=== PATIENT | male | born 1975 | race African-American/Black ===

== ENCOUNTER 2025-05-22 21:39 | Inpatient (IN) | payer SELFPAY ==
[~2025-05-22] VITALS: Ht 185.4 cm; Wt 63.0 kg
[2025-05-22 21:43] VITALS: O2SAT 96
[2025-05-22 23:46] LABS: BASOPHILS % 0.3 % (0.0-2.0); EOSINOPHILS % 2.2 % (0.0-5.0); HEMATOCRIT. 35.1 % (42.0-52.0); HEMOGLOBIN. 11.7 g/dL (14.0-18.0); LYMPHOCYTES % 18.8 % (20.0-50.0); MEAN PLATELET VOLUME 8.6 fl (7.4-10.4); MONOCYTES % 10.2 % (2.0-8.0); NEUTROPHILS % 68.5 % (40.0-76.0); PLATELET 159 x1000/uL (130-400); RED BLOOD CELL COUNT 3.55 mill/uL (4.7-6.1); RED CELL DISTRIBUTION WIDTH 13.6 % (11.6-14.6)
[2025-05-22 23:54] LABS: CREATININE 1.3 mg/dL (0.6-1.3)
[2025-05-22 23:55] LABS: ETHANOL BLOOD 299 mg/dL (<10); UREA NITROGEN BLOOD 14 mg/dL (9-23)
[2025-05-22 23:56] LABS: ASPARTATE AMINOTRANSFERASE 35 IU/L (<34)
[2025-05-22 23:57] LABS: BILIRUBIN DIRECT < 0.1 mg/dL (<=3.0); BILIRUBIN TOTAL 0.2 mg/dL (0.1-1.0); PROTEIN TOTAL 6.3 g/dL (6.0-8.3)
[2025-05-22] MEDS: SODIUM CHLORIDE 0.9% 1,000 ML IV ONE (23:59)
[2025-05-23 00:16] LABS: *AMPHETAMINES SCREEN URINE NEGATIVE (NEGATIVE); *BARBITURATES SCREEN URINE NEGATIVE (NEGATIVE); *BENZODIAZEPINES SCREEN URINE NEGATIVE (NEGATIVE); *COCAINE SCREEN URINE NEGATIVE (NEGATIVE); CANNABINOID URINE SCREEN NEGATIVE (NEGATIVE); ECSTASY MDMA SCREEN URINE NEGATIVE (NEGATIVE); METHADONE URINE SCREEN NEGATIVE (NEGATIVE); OPIATES URINE SCREEN NEGATIVE (NEGATIVE); PHENCYCLIDINE URINE SCREEN PRESUMTIVE POSITIVE (NEGATIVE)
[2025-05-23 00:27] LABS: CLARITY URINE CLEAR (CLEAR); COLOR URINE YELLOW (YELLOW); GLUCOSE URINE 1+ (NEGATIVE); KETONES URINE NEGATIVE (NEGATIVE); LEUKOCYTE ESTERASE URINE NEGATIVE (NEGATIVE); NITRITE URINE NEGATIVE (NEGATIVE); OCCULT BLOOD URINE NEGATIVE (NEGATIVE); PH URINE 6.0 (4.5-8.0); PROTEIN URINE 1+ (NEGATIVE); SPECIFIC GRAVITY URINE 1.009 (1.005-1.030); UROBILINOGEN URINE 0.2 E.U./dL (0.2-1.0)
[2025-05-23 00:30] LABS: TROPONIN I HIGH SENSITIVITY 75 ng/L (3.0-53)
[2025-05-23 01:54] LABS: INR 1.0
[2025-05-23] MEDS: ASPIRIN 325MG EC TABLET PO SCH (02:40)
[2025-05-23] MEDS: POTASSIUM CHLORIDE 20MEQ/PACKET PO SCH (02:40)
[2025-05-23] MEDS: ENOXAPARIN 80MG/0.8ML SYR SUBCUT SCH (02:42)
[2025-05-23] MEDS ORDERED: MAGNESIUM/ALUMINUM HYDROXIDE/SIMETHICONE 30ML UDC PO PRN (04:15)
[2025-05-23] MEDS ORDERED: ONDANSETRON HCL 4MG/2ML INJ IV PRN (04:15)
[2025-05-23] MEDS ORDERED: ACETAMINOPHEN 325MG TABLET PO PRN ×2 (04:15)
[2025-05-23] MEDS ORDERED: IPRATROPIUM/ALBUTEROL 0.5-3(2.5)MG/3ML NEB HHN PRN (04:15)
[2025-05-23] MEDS ORDERED: GUAIFENESIN 200MG/10ML SUGAR FREE UDC PO PRN (04:15)
[2025-05-23] MEDS ORDERED: DOCUSATE SODIUM 100MG CAPSULE PO PRN (04:15)
[2025-05-23] MEDS ORDERED: LORAZEPAM 2MG/ML UD SYRINGE IV PRN ×2 (04:15→04:45)
[2025-05-23] MEDS ORDERED: CLONIDINE 0.1MG TABLET PO PRN (04:15)
[2025-05-23 04:23] VITALS: O2SAT 100
[2025-05-23] MEDS ORDERED: *PATIENT'S OWN MEDICATION STORAGE XX SCH (05:45)
[2025-05-23 05:48] VITALS: BP 160/100; PULSE 85; RESP 18; TEMP 36.418; TEMP 36.4180
[2025-05-23] MEDS ORDERED: MVI, ADULT NO.1 10 ML, FOLIC ACID 1 MG, THIAMINE HCL 100 MG in SODIUM CHLORIDE 0.9% 1,0... IV SCH (06:00)
[2025-05-23 06:21] LABS: BACTERIA URINE NONE SEEN; RBC URINE 0-2 /hpf (0-2); SQUAMOUS EPITHELIAL CELL URINE NONE SEEN /lpf (RARE/1+); WBC URINE 0-2 /hpf (0-2)
[2025-05-24] MEDS ORDERED: THIAMINE HCL 100MG TABLET PO SCH (09:00)
[2025-05-24] MEDS ORDERED: FOLIC ACID 1MG TABLET PO SCH (09:00)
== END 2025-05-23 07:45 | disposition left against medical advice (07) | DRG 770 ==
LOC: ER 21:39 → 6WST 05-23 03:53 → EDBD 05-23 03:53 → EDBEDREQTM 05-23 04:01 → EDBEDREQ 05-23 04:01 → ENRESERV 05-23 04:14
PROVIDERS: ADMIT Hospitalist; ATTEND Hospitalist
DX: F10.129 Alcohol abuse with intoxication, unspecified (principal); I21.A1 Myocardial infarction type 2; D53.9 Nutritional anemia, unspecified; E87.6 Hypokalemia; Z53.29 Procedure and treatment not carried out because of patient's decision for other reasons; F16.10 Hallucinogen abuse, uncomplicated; F41.9 Anxiety disorder, unspecified; Y90.8 Blood alcohol level of 240 mg/100 ml or more
CPT/HCPCS: 36415; 80048; 80076; 80305; 80307; 80320; 80329; 81003; 82140; 83880; 84484; 85025; 93005; 99285; J1650; J3411; J3490; J7030; G0480

== ENCOUNTER 2025-08-05 19:03 | Emergency (ER) | payer SELFPAY ==
[~2025-08-05] VITALS: Ht 177.8 cm; Wt 73.0 kg
[2025-08-05 19:06] VITALS: O2SAT 100
[2025-08-05] MEDS: KETOROLAC 30MG/ML VIAL IM ONE (21:37)
[2025-08-05] MEDS: LIDOCAINE 5% PATCH TOP STA (21:40)
[2025-08-05] MEDS ORDERED: LIDO700A30 TP (22:24)
[2025-08-05] MEDS ORDERED: KETO10TA2 MT (22:24)
[2025-08-05 23:00] VITALS: BP 162/99; PULSE 105; RESP 18; TEMP 36.7; O2SAT 99
== END 2025-08-05 23:10 | disposition home or self-care (01) ==
LOC: ER 19:03
DX: S09.90XA Unspecified injury of head, initial encounter (principal); M25.552 Pain in left hip; I10 Essential (primary) hypertension; Y04.8XXA Assault by other bodily force, initial encounter; Y93.89 Activity, other specified; Y92.89 Other specified places as the place of occurrence of the external cause; Y99.8 Other external cause status
CPT/HCPCS: 99285; 70450; 73502; 72125; 96372; J1885

== ENCOUNTER 2025-08-08 08:45 | Emergency (ER) | payer BC, MEDICAID ==
[~2025-08-08] VITALS: Ht 185.4 cm; Wt 70.0 kg
[~2025-08-08 08:45] MED LIST: KETO10TA2 MT; LIDO700A30 TP
[2025-08-08 08:52] VITALS: O2SAT 100
[2025-08-08] MEDS: TETANUS, DIPHTHERIA, PERTUSSIS VAC/PF 0.5ML (>10YR OLD) IM ONE (09:23)
[2025-08-08] MEDS ORDERED: OFLO5DRO4 RIGHT EAR (10:03)
[2025-08-08 10:27] VITALS: BP 140/71; PULSE 92; RESP 15; TEMP 36.7; O2SAT 100
== END 2025-08-08 10:28 | disposition home or self-care (01) ==
LOC: ER 08:55
DX: H61.22 Impacted cerumen, left ear (principal); H60.8X2 Other otitis externa, left ear; G31.9 Degenerative disease of nervous system, unspecified; I10 Essential (primary) hypertension; Y09 Assault by unspecified means; Y93.89 Activity, other specified; Y92.89 Other specified places as the place of occurrence of the external cause; Y99.8 Other external cause status
CPT/HCPCS: 90471; 90715; 99285